=== PATIENT | female | born 1985 | race African-American/Black ===

== ENCOUNTER 2024-06-07 22:33 | Emergency (ER) | payer OTHER ==
[2024-06-07 22:46] VITALS: BP 118/80; PULSE 92; RESP 18; TEMP 97.7; BMI 25.6
[2024-06-07] MEDS ORDERED: FLUCONAZOLE 150 MG TABLET PO ONE (23:18)
[2024-06-07] MEDS: FLUCONAZOLE 150 MG TABLET PO ONE (23:20)
[2024-06-07 23:49] LABS: EPI CELLS 22 /uL (0-25.1); HYALINE CASTS 0 /uL (0-3.1); PH,URINE 5.5 (5.0-8.0); URINE APPEARANCE CLEAR; URINE BACTERIA 506 /uL (0-1359); URINE BILIRUBIN NEGATIVE (NEGATIVE); URINE COLOR YELLOW; URINE GLUCOSE (UA) NEGATIVE (NEGATIVE); URINE KETONE NEGATIVE (NEGATIVE); URINE LEUK ESTERASE TRACE (NEGATIVE); URINE NITRITE NEGATIVE (NEGATIVE); URINE PROTEIN NEGATIVE (NEGATIVE); URINE RBC 8 /uL (0-23.9); URINE UROBILINOGEN 0.2 mg/dL (0.2-1.0); URINE WBC 34 /uL (0-25.8)
[2024-06-07 23:50] LABS: HCG,QUALITATIVE URINE Negative
[2024-06-08 01:02] LABS: HIV INTERPRETATION NEGATIVE (NEGATIVE)
== END 2024-06-07 23:24 | disposition home or self-care (01) ==
LOC: JERFT 22:33
DX: N89.8 Other specified noninflammatory disorders of vagina (principal); Z20.2 Contact with and (suspected) exposure to infections with a predominantly sexual mode of transmission
CPT/HCPCS: 36415; 81003; 84703; 86803; 87070; 87086; 87186; 87205; 87389; 87491; 87591; 99283-25